=== PATIENT | female | born 1995 | race Caucasian/White ===

== ENCOUNTER 2024-07-01 21:09 | Outpatient (CLI) | payer OTHER ==
[~2024-07-01] VITALS: Ht 162.6 cm; Wt 74.0 kg
[2024-07-01 21:27] VITALS: BP 124/79
[2024-07-01] MEDS ORDERED: ASPI81CH33 PO (21:31)
[2024-07-01] MEDS ORDERED: HYDR-3363 PO (21:32)
[2024-07-01] MEDS ORDERED: SERT25TA85 PO (21:32)
[2024-07-01 21:44] VITALS: BP 136/81
[2024-07-01 22:00] VITALS: BP 125/77
[2024-07-01 22:14] VITALS: BP 128/70
[2024-07-01 22:19] LABS: APPEARANCE, URINE CLEAR (CLEAR); BACTERIA, URINE AUTO NEGATIVE (NEGATIVE); BILIRUBIN, URINE AUTO NEGATIVE (NEGATIVE); BLOOD, URINE BLOOD NEGATIVE (NEGATIVE); COLOR, URINE STRAW (YELLOW); GLUCOSE, URINE (UA) AUTO NEGATIVE (NEGATIVE); KETONE, URINE AUTO TRACE mg/dL (NEGATIVE); LEUKOCYTE ESTERASE, URINE AUTO NEGATIVE (NEGATIVE); NITRITE, URINE AUTO NEGATIVE (NEGATIVE); PROTEIN, URINE AUTO NEGATIVE (NEGATIVE); RBC, URINE AUTO 0 /HPF (0-3); SPECIFIC GRAVITY URINE AUTO 1.005 (1.002-1.035); SQUAMOUS EPITHELIAL CELL UR AU 2 /HPF (0-6); UROBILINOGEN, URINE AUTO 0.2 mg/dL (0.0-2.0); WBC, URINE AUTO 1 /HPF (0-3)
[2024-07-01 23:31] LABS: Trichomonas vaginalis (AMP) NOT DETECTED (NEGATIVE)
[2024-07-01 23:54] LABS: GC DNA AMPLIFICATION NEGATIVE (NEGATIVE)
== END 2024-07-01 22:56 | disposition home or self-care (01) ==
LOC: M LDO 21:09
PROVIDERS: ATTEND Obstetrics & Gynecology
DX: O26.893 Other specified pregnancy related conditions, third trimester (principal); R51.9 Headache, unspecified; R10.31 Right lower quadrant pain; M54.9 Dorsalgia, unspecified; R11.0 Nausea; O99.343 Other mental disorders complicating pregnancy, third trimester; F41.9 Anxiety disorder, unspecified; Z3A.33 33 weeks gestation of pregnancy
CPT/HCPCS: 59025; 81001; 87661; 87810; 87850; G0463